=== PATIENT | female | born 1940 | race Hispanic/Latino ===

== ENCOUNTER 2017-08-23 11:00 | Emergency (ER) | payer OTHER ==
[~2017-08-23 11:00] MED LIST: AEC81 PO; FURO20TA6 PO; GLIP-162 PO; LOVA40TA2 PO; METF-526 PO; METO-408 PO; PANT40TA25 PO; TRAM50TA4 PO
[2017-08-23 11:41] LABS: BASOPHILS % (AUTO) 0.5 % (0.0-5.0); EOSINOPHILS % (AUTO) 1.1 % (0.0-8.0); LYMPHOCYTES % (AUTO) 20.2 % (21.0-51.0); MEAN CORPUSCULAR HEMOGLOBIN 30.8 pg (27.0-33.0); MEAN CORPUSCULAR HGB CONC 33.9 g/dL (32.0-36.0); MEAN CORPUSCULAR VOLUME 90.6 fL (79-99); MONOCYTES % (AUTO) 5.4 % (3.0-13.0); NEUTROPHILS % (AUTO) 72.8 % (40.0-77.0); NUCLEATED RED BLOOD CELLS 0.1 % (0.0-0.19); PLATELET COUNT (AUTO) 287 K/uL (130-400); RED BLOOD CELL COUNT(AUTO) 4.31 MIL/uL (4.00-5.50)
[2017-08-23] MEDS ORDERED: HYDRALAZINE HCL 20 MG/ML VIAL ONE (11:41)
[2017-08-23] MEDS ORDERED: MECLIZINE HCL 25 MG TABLET ONE (11:41)
[2017-08-23 11:46] LABS: CREATININE 0.9 mg/dL (0.5-1.5); POTASSIUM 4.4 mmol/L (3.5-5.1)
[2017-08-23 11:48] LABS: APPEARANCE,URINE Clear (CLEAR); BILIRUBIN,URINE Negative (NEGATIVE); COLOR,URINE Yellow (YELLOW); GLUCOSE, URINE (UA) Negative (NEGATIVE); KETONES,URINE Negative (NEGATIVE); LEUKOCYTE ESTERASE ,URINE Trace (NEGATIVE); NITRATE,URINE Negative (NEGATIVE); OCCULT BLOOD,URINE Negative (NEGATIVE); PH,URINE 6.5 (5.0-8.0); PROTEIN,URINE Negative (NEGATIVE); UROBILINOGEN,URINE 0.2 mg/dL (0.2-1.0)
[2017-08-23 11:52] LABS: ALBUMIN 3.9 g/dL (3.5-5.0); BILIRUBIN,TOTAL 0.4 mg/dL (0.2-1.0); TOTAL PROTEIN, SERUM 7.6 g/dL (6.0-8.3)
[2017-08-23 11:57] LABS: BACTERIA,URINE Rare /HPF (None Seen); RBC,URINE 0-1 /HPF (0-1); SQUAMOUS EPITHELIAL CELL,UR Rare /HPF (0-2); WBC,URINE 0-1 /HPF (0-1)
== END 2017-08-23 14:20 | disposition home or self-care (01) ==
LOC: EDH 11:00
DX: H81.399 Other peripheral vertigo, unspecified ear (principal); I10 Essential (primary) hypertension; I25.10 Atherosclerotic heart disease of native coronary artery without angina pectoris; E78.00 Pure hypercholesterolemia, unspecified; E11.9 Type 2 diabetes mellitus without complications; Z95.1 Presence of aortocoronary bypass graft; Z90.710 Acquired absence of both cervix and uterus; Z90.49 Acquired absence of other specified parts of digestive tract; Z98.890 Other specified postprocedural states
CPT/HCPCS: 36415; 70450; 80053; 81001; 82550; 84484; 85025; 93005; 96374; 99285; J0360

== ENCOUNTER 2017-08-27 23:28 | Emergency (ER) | payer OTHER ==
[2017-08-27] MEDS ORDERED: CLONIDINE HCL 0.1 MG TABLET ONE (23:58)
[2017-08-28 00:25] LABS: APPEARANCE,URINE Error (CLEAR); BILIRUBIN,URINE Negative (NEGATIVE); COLOR,URINE Yellow (YELLOW); GLUCOSE, URINE (UA) 250 mg/dL (NEGATIVE); KETONES,URINE Negative (NEGATIVE); LEUKOCYTE ESTERASE ,URINE Moderate (NEGATIVE); NITRATE,URINE Negative (NEGATIVE); OCCULT BLOOD,URINE Negative (NEGATIVE); PH,URINE 7.5 (5.0-8.0); PROTEIN,URINE POS 2+ (NEGATIVE); UROBILINOGEN,URINE 0.2 mg/dL (0.2-1.0)
[2017-08-28 00:37] LABS: BASOPHILS % (AUTO) 0.3 % (0.0-5.0); EOSINOPHILS % (AUTO) 0.7 % (0.0-8.0); HEMATOCRIT 37.9 % (36-48); LYMPHOCYTES % (AUTO) 5.4 % (21.0-51.0); MEAN CORPUSCULAR HEMOGLOBIN 30.2 pg (27.0-33.0); MEAN CORPUSCULAR HGB CONC 33.5 g/dL (32.0-36.0); MONOCYTES % (AUTO) 1.9 % (3.0-13.0); NEUTROPHILS % (AUTO) 91.7 % (40.0-77.0); PLATELET COUNT (AUTO) 264 K/uL (130-400); RED BLOOD CELL COUNT(AUTO) 4.21 MIL/uL (4.00-5.50); RED CELL DISTRIBUTION WIDTH 12.7 % (11.0-15.5); WHITE BLOOD COUNT (AUTO) 14.3 K/uL (4.8-10.8)
[2017-08-28 00:37] LABS: BACTERIA,URINE Few /HPF (None Seen); MUCUS,URINE Moderate LPF (None Seen); RBC,URINE 0-1 /HPF (0-1); SQUAMOUS EPITHELIAL CELL,UR Few /HPF (0-2)
[2017-08-28 00:50] LABS: CREATININE 0.9 mg/dL (0.5-1.5)
[2017-08-28] MEDS ORDERED: CEFTRIAXONE SODIUM 1 GM ONE (00:50)
[2017-08-28 00:55] LABS: ALBUMIN 3.9 g/dL (3.5-5.0); BILIRUBIN,TOTAL 0.4 mg/dL (0.2-1.0); TOTAL PROTEIN, SERUM 7.8 g/dL (6.0-8.3)
== END 2017-08-28 01:33 | disposition home or self-care (01) ==
LOC: EDH 23:28
DX: N39.0 Urinary tract infection, site not specified (principal); R50.9 Fever, unspecified; I25.10 Atherosclerotic heart disease of native coronary artery without angina pectoris; E11.9 Type 2 diabetes mellitus without complications; E78.00 Pure hypercholesterolemia, unspecified; Z95.1 Presence of aortocoronary bypass graft; Z90.710 Acquired absence of both cervix and uterus; Z90.49 Acquired absence of other specified parts of digestive tract
CPT/HCPCS: 36415; 80053; 81001; 82550; 84484; 85025; 93005; 96374; 99285; J0696

== ENCOUNTER 2018-01-08 14:19 | Observation (INO) | payer OTHER ==
[~2018-01-08] VITALS: Ht 162.6 cm; Wt 53.8 kg
[~2018-01-08 14:19] MED LIST changes: +ATOR40TA71 PO; -FURO20TA6 PO; -GLIP-162 PO; +GLIP10TA9 PO; +LISI10TA7 PO; -LOVA40TA2 PO; -PANT40TA25 PO; -TRAM50TA4 PO
[2018-01-08] MEDS ORDERED: SODIUM CHLORIDE 0.9% 500ML 500 ML IV ONE (14:46)
[2018-01-08] MEDS ORDERED: ONDANSETRON HCL 4 MG/2 ML VIAL ONE ×2 (14:46→19:26)
[2018-01-08 14:48] LABS: BASOPHILS % (AUTO) 0.2 % (0.0-5.0); EOSINOPHILS % (AUTO) 0.5 % (0.0-8.0); HEMATOCRIT 40.3 % (36-48); LYMPHOCYTES % (AUTO) 5.5 % (21.0-51.0); MEAN CORPUSCULAR HEMOGLOBIN 30.3 pg (27.0-33.0); MEAN CORPUSCULAR HGB CONC 32.8 g/dL (32.0-36.0); MEAN CORPUSCULAR VOLUME 92.3 fL (79-99); MONOCYTES % (AUTO) 3.8 % (3.0-13.0); PLATELET COUNT (AUTO) 303 K/uL (130-400); RED BLOOD CELL COUNT(AUTO) 4.36 MIL/uL (4.00-5.50); RED CELL DISTRIBUTION WIDTH 13.7 % (11.0-15.5); WHITE BLOOD COUNT (AUTO) 18.4 K/uL (4.8-10.8)
[2018-01-08 14:55] LABS: CREATININE 0.9 mg/dL (0.5-1.5); POTASSIUM 4.3 mmol/L (3.5-5.1)
[2018-01-08 14:59] LABS: ALBUMIN 3.7 g/dL (3.5-5.0); BILIRUBIN,TOTAL 0.6 mg/dL (0.2-1.0); TOTAL PROTEIN, SERUM 7.6 g/dL (6.0-8.3)
[2018-01-08] MEDS ORDERED: FAMOTIDINE/PF 20 MG/2 ML VIAL IV ONE (15:00)
[2018-01-08] MEDS: SODIUM CHLORIDE 0.9% 1000ML 1,000 ML IV SCH (16:12)
[2018-01-08] MEDS ORDERED: LEVOFLOXACIN 500 MG/D5W 100 ML 100 ML IV SCH (16:15)
[2018-01-08] MEDS ORDERED: ACETAMINOPHEN 325 MG TAB PO PRN (16:15)
[2018-01-08] MEDS ORDERED: ONDANSETRON HCL MDV 20ML 2 MG/ML VIAL IVP PRN (16:15)
[2018-01-08] MEDS ORDERED: HYDRALAZINE HCL 20 MG/ML VIAL IV PRN (16:15)
[2018-01-08] MEDS ORDERED: MORPHINE SULFATE 2 MG/ML 1ML SYG IV PRN (16:15)
[2018-01-08] MEDS: METRONIDAZOLE 500MG/100ML BAG 100 ML IV SCH (16:15)
[2018-01-08] MEDS: INSULIN HUMULIN R 100 UNIT/ML 3ML SQ SCH ×2 (16:30→21:00)
[2018-01-08] MEDS ORDERED: SODIUM CHLORIDE 0.9% 1000ML 1,000 ML IV ONE (17:14)
[2018-01-08] MEDS ORDERED: LEVOFLOXACIN 500 MG/D5W 100 ML 100 ML ONE (17:14)
[2018-01-08] MEDS ORDERED: METRONIDAZOLE 500MG/100ML BAG 100 ML ONE (17:14)
[2018-01-08] MEDS ORDERED: ACETAMINOPHEN 325 MG TAB ONE (18:24)
[2018-01-08] MEDS: METOPROLOL TARTRATE 50 MG TAB PO SCH (21:00)
[2018-01-09] MEDS: METRONIDAZOLE 500MG/100ML BAG 100 ML IV SCH ×2 (00:15→08:53)
[2018-01-09] MEDS ORDERED: METRONIDAZOLE 500MG/100ML BAG 100 ML ONE (02:04)
[2018-01-09 03:20] VITALS: BP 130/61
[2018-01-09 06:31] LABS: HEMATOCRIT 34.6 % (36-48); MEAN CORPUSCULAR HEMOGLOBIN 31.2 pg (27.0-33.0); MEAN CORPUSCULAR HGB CONC 33.9 g/dL (32.0-36.0); PLATELET COUNT (AUTO) 255 K/uL (130-400); RED BLOOD CELL COUNT(AUTO) 3.76 MIL/uL (4.00-5.50); RED CELL DISTRIBUTION WIDTH 13.7 % (11.0-15.5); WHITE BLOOD COUNT (AUTO) 7.4 K/uL (4.8-10.8)
[2018-01-09 06:36] LABS: CREATININE 0.8 mg/dL (0.5-1.5); POTASSIUM 3.5 mmol/L (3.5-5.1)
[2018-01-09] MEDS: SODIUM CHLORIDE 0.9% 1000ML 1,000 ML IV SCH (06:52)
[2018-01-09] MEDS: INSULIN HUMULIN R 100 UNIT/ML 3ML SQ SCH ×2 (06:52→11:30)
[2018-01-09 07:10] LABS: APPEARANCE,URINE Clear (CLEAR); BILIRUBIN,URINE Negative (NEGATIVE); COLOR,URINE Yellow (YELLOW); GLUCOSE, URINE (UA) Negative (NEGATIVE); KETONES,URINE Negative (NEGATIVE); LEUKOCYTE ESTERASE ,URINE Negative (NEGATIVE); NITRATE,URINE Negative (NEGATIVE); OCCULT BLOOD,URINE Negative (NEGATIVE); PH,URINE 5.5 (5.0-8.0); PROTEIN,URINE Negative (NEGATIVE)
[2018-01-09 07:59] VITALS: BP 140/61
[2018-01-09] MEDS: METOPROLOL TARTRATE 50 MG TAB PO SCH (08:54)
[2018-01-09] MEDS ORDERED: ASPIRIN 81 MG EC TAB PO SCH (09:00)
[2018-01-09] MEDS ORDERED: ATORVASTATIN CALCIUM 40 MG TABLET PO SCH (09:00)
[2018-01-09] MEDS ORDERED: ENOXAPARIN SODIUM 30 MG/0.3 ML SQ SCH (09:00)
[2018-01-09] MEDS ORDERED: FAMOTIDINE/PF 20 MG/2 ML VIAL IV SCH (09:00)
[2018-01-09 11:39] VITALS: BP 141/62
[2018-01-09] MEDS ORDERED: METR500T4 PO (12:16)
== END 2018-01-09 15:17 | disposition home or self-care (01) ==
LOC: EDH 14:19 → EDHIP 15:40 → 3CH 01-09 02:51
PROVIDERS: ADMIT Hospitalist; ATTEND Hospitalist
DX: K52.9 Noninfective gastroenteritis and colitis, unspecified (principal); E86.0 Dehydration; E11.9 Type 2 diabetes mellitus without complications; I25.10 Atherosclerotic heart disease of native coronary artery without angina pectoris; E78.5 Hyperlipidemia, unspecified; I10 Essential (primary) hypertension; Z79.84 Long term (current) use of oral hypoglycemic drugs; Z83.3 Family history of diabetes mellitus; Z90.710 Acquired absence of both cervix and uterus; Z95.1 Presence of aortocoronary bypass graft; Z90.49 Acquired absence of other specified parts of digestive tract
CPT/HCPCS: 36415 ×2; 80048; 80053; 81003; 82948 ×3; 83690; 85025; 85027; 93005; 96361; 96372; 96374; 99285; G0378 ×24; J1650; J1956; J2405 ×2; J3490 ×5; J7030; J7040

== ENCOUNTER 2018-01-10 22:27 | Emergency (ER) | payer OTHER ==
[~2018-01-10 22:27] MED LIST changes: +METR500T4 PO
[2018-01-10] MEDS ORDERED: HYDRALAZINE HCL 20 MG/ML VIAL ONE (23:01)
[2018-01-10 23:20] LABS: BASOPHILS % (AUTO) 0.5 % (0.0-5.0); HEMATOCRIT 36.3 % (36-48); LYMPHOCYTES % (AUTO) 29.4 % (21.0-51.0); MEAN CORPUSCULAR HEMOGLOBIN 31.7 pg (27.0-33.0); MEAN CORPUSCULAR HGB CONC 34.4 g/dL (32.0-36.0); MEAN CORPUSCULAR VOLUME 92.2 fL (79-99); NEUTROPHILS % (AUTO) 53.1 % (40.0-77.0); NUCLEATED RED BLOOD CELLS 0.2 % (0.0-0.19); PLATELET COUNT (AUTO) 284 K/uL (130-400); RED BLOOD CELL COUNT(AUTO) 3.94 MIL/uL (4.00-5.50); RED CELL DISTRIBUTION WIDTH 13.9 % (11.0-15.5); WHITE BLOOD COUNT (AUTO) 7.8 K/uL (4.8-10.8)
[2018-01-10 23:32] LABS: INR 0.95 (0.85-1.15); PARTIAL THROMBOPLASTIN TIME 25.9 SEC (26.3-35.5)
[2018-01-10 23:33] LABS: CREATININE 0.8 mg/dL (0.5-1.5); POTASSIUM 4.2 mmol/L (3.5-5.1)
[2018-01-10 23:44] LABS: ALBUMIN 3.4 g/dL (3.5-5.0); BILIRUBIN,TOTAL 0.3 mg/dL (0.2-1.0); TOTAL PROTEIN, SERUM 6.6 g/dL (6.0-8.3)
[2018-01-10 23:48] LABS: B-TYPE NATRIURETIC PEPTIDE 156 pg/mL (0-100)
== END 2018-01-11 00:24 | disposition home or self-care (01) ==
LOC: EDH 22:27
DX: B34.9 Viral infection, unspecified (principal); K52.9 Noninfective gastroenteritis and colitis, unspecified; J06.9 Acute upper respiratory infection, unspecified; I10 Essential (primary) hypertension; I25.10 Atherosclerotic heart disease of native coronary artery without angina pectoris; E11.9 Type 2 diabetes mellitus without complications; E78.00 Pure hypercholesterolemia, unspecified
CPT/HCPCS: 36415; 71045; 80053; 82550; 83874; 83880; 84484; 85025; 85610; 85730; 93005; 94761; 96365; 99285; J0360

== ENCOUNTER 2018-05-16 07:56 | Inpatient (IN) | payer OTHER | END 2018-05-18 17:50 | disposition home or self-care (01) | LOC: EDH 07:56 → 2DH 05-17 08:06 → EDHIP 09:37 → 2DH 18:32 | DX: R00.1 Bradycardia, unspecified (principal); I25.10 Atherosclerotic heart disease of native coronary artery without angina pectoris; I44.1 Atrioventricular block, second degree; I10 Essential (primary) hypertension ==

== ENCOUNTER 2018-05-28 18:19 | Observation (INO) | payer OTHER ==
[~2018-05-28 18:19] MED LIST changes: +METR-172 PO; -METR500T4 PO; +TYL3 PO
[2018-05-28] MEDS ORDERED: NITROGLYCERIN 1GM/1 INCH PACKET TD ONE (18:50)
[2018-05-28] MEDS ORDERED: ASPIRIN 325 MG TABLET ONE (18:50)
[2018-05-28 18:59] LABS: BASOPHILS % (AUTO) 0.6 % (0.0-5.0); EOSINOPHILS % (AUTO) 2.8 % (0.0-8.0); LYMPHOCYTES % (AUTO) 18.8 % (21.0-51.0); MEAN CORPUSCULAR HEMOGLOBIN 30.9 pg (27.0-33.0); MEAN CORPUSCULAR HGB CONC 33.5 g/dL (32.0-36.0); NEUTROPHILS % (AUTO) 68.8 % (40.0-77.0); PLATELET COUNT (AUTO) 409 K/uL (130-400); RED BLOOD CELL COUNT(AUTO) 3.81 MIL/uL (4.00-5.50); RED CELL DISTRIBUTION WIDTH 13.7 % (11.0-15.5); WHITE BLOOD COUNT (AUTO) 8.6 K/uL (4.8-10.8)
[2018-05-28 19:14] LABS: CREATININE 1.1 mg/dL (0.5-1.5); POTASSIUM 4.1 mmol/L (3.5-5.1)
[2018-05-28] MEDS ORDERED: MORPHINE SULFATE 2 MG/ML 1ML SYG IV PRN (21:30)
[2018-05-28] MEDS ORDERED: ONDANSETRON HCL 4 MG/2 ML VIAL IV PRN (21:30)
[2018-05-28] MEDS ORDERED: ACETAMINOPHEN 325 MG TAB PO PRN (21:30)
[2018-05-28] MEDS ORDERED: NITROGLYCERIN 1GM/1 INCH PACKET TD SCH (21:30)
[2018-05-28] MEDS ORDERED: HYDRALAZINE HCL 20 MG/ML VIAL IV PRN (21:30)
[2018-05-28] MEDS ORDERED: ACETAMINOPHEN 325 MG TAB ONE (23:30)
[2018-05-28] MEDS ORDERED: HYDRALAZINE HCL 20 MG/ML VIAL ONE (23:44)
[2018-05-29 02:01] LABS: APPEARANCE,URINE Clear (CLEAR); BILIRUBIN,URINE Negative (NEGATIVE); COLOR,URINE Yellow (YELLOW); GLUCOSE, URINE (UA) Negative (NEGATIVE); KETONES,URINE Negative (NEGATIVE); LEUKOCYTE ESTERASE ,URINE Small (NEGATIVE); NITRATE,URINE Negative (NEGATIVE); OCCULT BLOOD,URINE Negative (NEGATIVE); PH,URINE 7.5 (5.0-8.0); PROTEIN,URINE POS 2+ (NEGATIVE)
[2018-05-29 02:16] LABS: BACTERIA,URINE Rare /HPF (None Seen); RBC,URINE 0-1 /HPF (0-1)
[2018-05-29] MEDS ORDERED: NITROGLYCERIN 1GM/1 INCH PACKET TD ONE (03:44)
[2018-05-29] MEDS ORDERED: ACETAMINOPHEN 325 MG TAB ONE (03:44)
[2018-05-29] MEDS ORDERED: ASPIRIN 81MG TAB.CHEW ONE (08:24)
[2018-05-29] MEDS ORDERED: METRONIDAZOLE 500 MG TABLET ONE (08:24)
[2018-05-29] MEDS ORDERED: ATORVASTATIN CALCIUM 20 MG TABLET ONE (08:25)
[2018-05-29] MEDS ORDERED: METOPROLOL TARTRATE 50 MG TAB ONE (08:25)
[2018-05-29] MEDS ORDERED: ENOXAPARIN SODIUM 30 MG/0.3 ML SQ ONE (08:26)
[2018-05-29] MEDS ORDERED: FAMOTIDINE/PF 20 MG/2 ML VIAL IV ONE (08:26)
[2018-05-29 08:57] LABS: HEMATOCRIT 34.4 % (36-48); MEAN CORPUSCULAR HEMOGLOBIN 30.2 pg (27.0-33.0); MEAN CORPUSCULAR HGB CONC 32.9 g/dL (32.0-36.0); MEAN CORPUSCULAR VOLUME 91.8 fL (79-99); PLATELET COUNT (AUTO) 376 K/uL (130-400); RED BLOOD CELL COUNT(AUTO) 3.75 MIL/uL (4.00-5.50); RED CELL DISTRIBUTION WIDTH 13.6 % (11.0-15.5); WHITE BLOOD COUNT (AUTO) 12.2 K/uL (4.8-10.8)
[2018-05-29] MEDS ORDERED: LISINOPRIL 10 MG TABLET PO SCH (09:00)
[2018-05-29] MEDS ORDERED: ENOXAPARIN SODIUM 30 MG/0.3 ML SQ SCH (09:00)
[2018-05-29] MEDS ORDERED: METRONIDAZOLE 500 MG TABLET PO SCH (09:00)
[2018-05-29] MEDS ORDERED: Metoprolol Succinate 50 MG PO SCH (09:00)
[2018-05-29] MEDS ORDERED: FAMOTIDINE/PF 20 MG/2 ML VIAL IV SCH (09:00)
[2018-05-29] MEDS ORDERED: ASPIRIN 81 MG EC TAB PO SCH (09:00)
[2018-05-29] MEDS ORDERED: ATORVASTATIN CALCIUM 40 MG TABLET PO SCH (09:00)
[2018-05-29 09:01] LABS: CREATININE 0.8 mg/dL (0.5-1.5); POTASSIUM 4.2 mmol/L (3.5-5.1)
[2018-05-29 09:25] LABS: B-TYPE NATRIURETIC PEPTIDE 153 pg/mL (0-100)
== END 2018-05-29 10:13 | disposition home or self-care (01) ==
LOC: EDH 18:19 → EDHIP 19:55
PROVIDERS: ADMIT Internal Medicine; ATTEND Internal Medicine
DX: I10 Essential (primary) hypertension (principal); I25.10 Atherosclerotic heart disease of native coronary artery without angina pectoris; E78.5 Hyperlipidemia, unspecified; E11.9 Type 2 diabetes mellitus without complications; Z82.49 Family history of ischemic heart disease and other diseases of the circulatory system; Z83.3 Family history of diabetes mellitus; Z95.0 Presence of cardiac pacemaker; Z90.710 Acquired absence of both cervix and uterus; Z95.1 Presence of aortocoronary bypass graft
CPT/HCPCS: 36415 ×2; 71046; 80048 ×2; 81001; 83880; 84484 ×3; 85025; 85027; 93005; 99284; G0378 ×14; J0360; J1650; J3490

== ENCOUNTER → 2019-07-03 | Outpatient (CLI) | payer OTHER | END | disposition home or self-care (01) | LOC: SHCH 09:26 | PROVIDERS: ATTEND Internal Medicine Cardiovascular Disease | DX: I07.1 Rheumatic tricuspid insufficiency (principal); R01.1 Cardiac murmur, unspecified | CPT/HCPCS: 93306; 93356 ==

== ENCOUNTER → 2019-07-09 | Outpatient (CLI) | payer OTHER | END | disposition home or self-care (01) | LOC: SHCH 08:09 | PROVIDERS: ATTEND Internal Medicine Cardiovascular Disease | DX: R09.89 Other specified symptoms and signs involving the circulatory and respiratory systems (principal) | CPT/HCPCS: 93880 ==

== ENCOUNTER → 2021-02-07 | Outpatient (CLI) | payer OTHER ==
[~2021-02-07] MED LIST changes: +LISI10TA24 PO; -LISI10TA7 PO
== END | disposition home or self-care (01) ==
LOC: SHCH 08:47
PROVIDERS: ATTEND Internal Medicine Cardiovascular Disease
DX: I34.0 Nonrheumatic mitral (valve) insufficiency (principal); R55 Syncope and collapse; I25.10 Atherosclerotic heart disease of native coronary artery without angina pectoris; I10 Essential (primary) hypertension
CPT/HCPCS: 93306; 93356

== ENCOUNTER → 2022-01-09 | Outpatient (CLI) | payer OTHER ==
[~2022-01-09] VITALS: Ht 162.6 cm; Wt 48.5 kg
[~2022-01-09] MED LIST changes: +REGADENOSON 0.4 MG/5 ML PF SYG IVP SCH
== END | disposition home or self-care (01) ==
LOC: OIH 08:59
PROVIDERS: ATTEND Internal Medicine Cardiovascular Disease
DX: R07.9 Chest pain, unspecified (principal); R06.00 Dyspnea, unspecified; I10 Essential (primary) hypertension
CPT/HCPCS: 78452; 96374; 93017; J2785; A9500 ×2

== ENCOUNTER → 2022-12-11 | Outpatient (CLI) | payer OTHER ==
[~2022-12-11] MED LIST changes: -REGADENOSON 0.4 MG/5 ML PF SYG IVP SCH
== END | disposition home or self-care (01) ==
LOC: SHCH 08:31
PROVIDERS: ATTEND Internal Medicine Cardiovascular Disease
DX: I25.10 Atherosclerotic heart disease of native coronary artery without angina pectoris (principal); Z95.5 Presence of coronary angioplasty implant and graft
CPT/HCPCS: 93306

== ENCOUNTER 2023-07-15 21:28 | Emergency (ER) | payer OTHER ==
[~2023-07-15] VITALS: Ht 149.9 cm; Wt 44.9 kg
[2023-07-15 21:55] LABS: BASOPHILS # (AUTO) 0.02 K/uL (0.00-0.20); BASOPHILS % (AUTO) 0.2 % (0.0-5.0); EOSINOPHILS # (AUTO) 0.13 K/uL (0.00-0.70); EOSINOPHILS % (AUTO) 1.5 % (0.0-8.0); HEMATOCRIT 38.9 % (36-48); IMMATURE GRANULOCYTE ABSOLUTE 0.01 K/uL (0-1); LYMPHOCYTES # (AUTO) 2.4 K/uL (1.0-4.8); LYMPHOCYTES % (AUTO) 27.9 % (21.0-51.0); MEAN CORPUSCULAR HEMOGLOBIN 30.7 pg (27.0-33.0); MEAN CORPUSCULAR HGB CONC 33.4 g/dL (32.0-36.0); MEAN CORPUSCULAR VOLUME 91.7 fL (79-99); MONOCYTES # (AUTO) 1.3 K/uL (0.1-1.0); MONOCYTES % (AUTO) 15.5 % (3.0-13.0); NEUTROPHILS # (AUTO) 4.6 K/uL (1.8-7.7); NEUTROPHILS % (AUTO) 54.8 % (40.0-77.0); PLATELET COUNT (AUTO) 237 K/uL (130-400); RED BLOOD CELL COUNT(AUTO) 4.24 MIL/uL (4.00-5.50); RED CELL DISTRIBUTION WIDTH 13.1 % (11.0-15.5); WHITE BLOOD COUNT (AUTO) 8.5 K/uL (4.8-10.8)
[2023-07-15 21:56] LABS: APPEARANCE,URINE CLEAR (CLEAR); BILIRUBIN,URINE NEGATIVE (NEGATIVE); COLOR,URINE COLORLESS (YELLOW); GLUCOSE, URINE (UA) NEGATIVE (NEGATIVE); KETONES,URINE NEGATIVE (NEGATIVE); LEUKOCYTE ESTERASE ,URINE NEGATIVE Leu/uL (NEGATIVE); NITRATE,URINE NEGATIVE (NEGATIVE); OCCULT BLOOD,URINE NEGATIVE (NEGATIVE); PH,URINE 5.5 (5.0-8.0); PROTEIN,URINE NEGATIVE (NEGATIVE); UROBILINOGEN,URINE 0.2 mg/dL (0.2-1.0)
[2023-07-15 21:58] LABS: ADD UA MICROSCOPIC YES
[2023-07-15 22:07] LABS: CREATININE 0.8 mg/dL (0.5-1.0); POTASSIUM 4.2 mmol/L (3.5-5.1)
[2023-07-15 22:12] LABS: ALBUMIN 2.9 g/dL (3.5-5.0); BILIRUBIN,TOTAL 0.4 mg/dL (0.2-1.0); TOTAL PROTEIN, SERUM 6.5 g/dL (6.0-8.3)
[2023-07-15 22:20] LABS: INFLUENZA TYPE A Negative For Type A (NEGATIVE); INFLUENZA TYPE B Negative For Type B (NEGATIVE)
[2023-07-15 22:23] LABS: RAPID GROUP A STREP positive (NEGATIVE); SARS-CoV-2, RNA, NAAT POSITIVE SARS CoV-2 (NEGATIVE)
[2023-07-15] MEDS: ALBUTEROL 0.083% 2.5 MG/3 ML INH IH ONE (23:24)
[2023-07-15 23:25] VITALS: PULSE 81; RESP 12
[2023-07-15] MEDS: 0.9%NACL 1000ML 1,000 ML IV ONE (23:35)
[2023-07-15] MEDS: CEFTRIAXONE 2GM VIAL IVPB ONE (23:35)
[2023-07-15] MEDS: DEXAMETHASONE SOD PHOSPHATE 4 MG/ML 1ML VIAL IV ONE (23:36)
[2023-07-15] MEDS: METOCLOPRAMIDE 10 MG/2 ML VIAL IVP ONE (23:36)
[2023-07-15] MEDS: KETOROLAC 30MG VIAL (30MG/ML) IVP ONE (23:36)
[2023-07-15] MEDS: FAMOTIDINE 20MG VIAL IV ONE (23:37)
[2023-07-15] MEDS ORDERED: AUD IH (23:51)
[2023-07-15] MEDS ORDERED: PENI500T2 PO (23:51)
[2023-07-16 01:07] VITALS: BP 167/84; PULSE 77; RESP 16; O2SAT 98
== END 2023-07-16 01:24 | disposition home or self-care (01) ==
LOC: EDH 21:28
DX: U07.1 COVID-19 (principal); J02.0 Streptococcal pharyngitis; I10 Essential (primary) hypertension; E11.9 Type 2 diabetes mellitus without complications; E78.00 Pure hypercholesterolemia, unspecified; Z79.82 Long term (current) use of aspirin; Z79.84 Long term (current) use of oral hypoglycemic drugs; Z79.899 Other long term (current) drug therapy; Z98.890 Other specified postprocedural states
CPT/HCPCS: 99284; 96365; 96375; 87635; 96366; 82550; 84484; 80053; 83690; 85025; 87880; 87804 ×2; 83605; 81001; 36415; 93005; 94640; J1100; J3490; J7030; J0696; J1885; J2765

== ENCOUNTER → 2023-10-02 | Outpatient (CLI) | payer OTHER ==
[~2023-10-02] MED LIST changes: +ALBU90AE3 IH; +AUD IH; +PENI500T2 PO
[2023-10-02 10:20] LABS: BASOPHILS # (AUTO) 0.03 K/uL (0.00-0.20); BASOPHILS % (AUTO) 0.3 % (0.0-5.0); EOSINOPHILS % (AUTO) 2.2 % (0.0-8.0); HEMATOCRIT 36.7 % (36-48); IMMATURE GRANULOCYTE ABSOLUTE 0.03 K/uL (0-1); LYMPHOCYTES # (AUTO) 2.4 K/uL (1.0-4.8); LYMPHOCYTES % (AUTO) 25.9 % (21.0-51.0); MEAN CORPUSCULAR HEMOGLOBIN 31.2 pg (27.0-33.0); MEAN CORPUSCULAR HGB CONC 32.4 g/dL (32.0-36.0); MEAN CORPUSCULAR VOLUME 96.1 fL (79-99); MONOCYTES # (AUTO) 0.7 K/uL (0.1-1.0); MONOCYTES % (AUTO) 7.3 % (3.0-13.0); NEUTROPHILS # (AUTO) 5.9 K/uL (1.8-7.7); PLATELET COUNT (AUTO) 268 K/uL (130-400); RED BLOOD CELL COUNT(AUTO) 3.82 MIL/uL (4.00-5.50); RED CELL DISTRIBUTION WIDTH 12.5 % (11.0-15.5); WHITE BLOOD COUNT (AUTO) 9.2 K/uL (4.8-10.8)
[2023-10-02 10:32] LABS: ALBUMIN 3.4 g/dL (3.5-5.0); BILIRUBIN,TOTAL 0.3 mg/dL (0.2-1.0); CREATININE 0.7 mg/dL (0.5-1.0); POTASSIUM 4.7 mmol/L (3.5-5.1); TOTAL PROTEIN, SERUM 6.7 g/dL (6.0-8.3)
== END | disposition home or self-care (01) ==
LOC: LAB 09:15
PROVIDERS: ATTEND Internal Medicine Gastroenterology
DX: I70.0 Atherosclerosis of aorta (principal); R63.4 Abnormal weight loss; M47.815 Spondylosis without myelopathy or radiculopathy, thoracolumbar region; Z98.890 Other specified postprocedural states; Z95.0 Presence of cardiac pacemaker
CPT/HCPCS: 36415; 71046; 80053; 85025

== ENCOUNTER 2023-10-12 19:22 | Observation (INO) | payer OTHER ==
[~2023-10-12] VITALS: Ht 157.5 cm; Wt 43.5 kg
[2023-10-12 20:32] LABS: BASOPHILS # (AUTO) 0.03 K/uL (0.00-0.20); BASOPHILS % (AUTO) 0.3 % (0.0-5.0); EOSINOPHILS # (AUTO) 0.13 K/uL (0.00-0.70); EOSINOPHILS % (AUTO) 1.4 % (0.0-8.0); HEMATOCRIT 34.3 % (36-48); IMMATURE GRANULOCYTE ABSOLUTE 0.02 K/uL (0-1); LYMPHOCYTES # (AUTO) 1.4 K/uL (1.0-4.8); LYMPHOCYTES % (AUTO) 15.4 % (21.0-51.0); MEAN CORPUSCULAR HEMOGLOBIN 31.5 pg (27.0-33.0); MEAN CORPUSCULAR HGB CONC 33.5 g/dL (32.0-36.0); MONOCYTES # (AUTO) 0.8 K/uL (0.1-1.0); NEUTROPHILS # (AUTO) 6.7 K/uL (1.8-7.7); NEUTROPHILS % (AUTO) 73.7 % (40.0-77.0); PLATELET COUNT (AUTO) 220 K/uL (130-400); RED BLOOD CELL COUNT(AUTO) 3.65 MIL/uL (4.00-5.50); RED CELL DISTRIBUTION WIDTH 12.1 % (11.0-15.5); WHITE BLOOD COUNT (AUTO) 9.1 K/uL (4.8-10.8)
[2023-10-12 20:39] LABS: APPEARANCE,URINE CLEAR (CLEAR); BILIRUBIN,URINE NEGATIVE (NEGATIVE); COLOR,URINE LIGHT-YELLOW (YELLOW); GLUCOSE, URINE (UA) NEGATIVE (NEGATIVE); KETONES,URINE NEGATIVE (NEGATIVE); LEUKOCYTE ESTERASE ,URINE 250 Leu/uL (NEGATIVE); NITRATE,URINE NEGATIVE (NEGATIVE); OCCULT BLOOD,URINE NEGATIVE (NEGATIVE); PROTEIN,URINE 50 mg/dL (NEGATIVE); UROBILINOGEN,URINE 0.2 mg/dL (0.2-1.0)
[2023-10-12 20:42] LABS: ADD UA MICROSCOPIC YES
[2023-10-12 20:47] LABS: MUCUS,URINE RARE LPF (None Seen); SQUAMOUS EPITHELIAL CELL,UR RARE /HPF (0-2)
[2023-10-12 20:56] LABS: POTASSIUM 4.6 mmol/L (3.5-5.1)
[2023-10-12 21:01] LABS: ALBUMIN 3.3 g/dL (3.5-5.0); BILIRUBIN,TOTAL 0.2 mg/dL (0.2-1.0); TOTAL PROTEIN, SERUM 6.1 g/dL (6.0-8.3)
[2023-10-12] MEDS: MAG/ALUM/SIMETH 30 ML UDCUP PO ONE (21:01)
[2023-10-12] MEDS: LIDOCAINE HCL 2% VISCOUS 15 ML UDCUP PO ONE (21:01)
[2023-10-12] MEDS ORDERED: IOHEXOL-350 75 ML VIAL IV ONE (21:43)
[2023-10-12] MEDS: HYDROMORPHONE 0.5 MG SYG (0.5MG/0.5ML) IVP ONE (23:01)
[2023-10-13] VITALS (7 sets, daily range): BP systolic 114–211; BP diastolic 51–74; PULSE 61–67; RESP 16–21; O2SAT 97–98
[2023-10-13] MEDS: HYDRALAZINE 20MG/ML VIAL IV ONE (01:10)
[2023-10-13] MEDS: HYDRALAZINE HCL 10 MG TABLET PO STA (01:22)
[2023-10-13] MEDS ORDERED: GLUCAGON 1MG KIT 1 MG ML IM PRN (02:30)
[2023-10-13] MEDS ORDERED: POTASSIUM CHLORIDE 10% ELIXIR 20 MEQ/15 ML UDCUP PO PRN (02:30)
[2023-10-13] MEDS ORDERED: ACETAMINOPHEN 325 MG TAB PO PRN (02:30)
[2023-10-13] MEDS ORDERED: POTASSIUM CHLORIDE 10MEQ/100ML 100 ML IV PRN (02:30)
[2023-10-13] MEDS ORDERED: DEXTROSE 50%-WATER 50 ML DISP.SYRIN IV PRN (02:30)
[2023-10-13] MEDS ORDERED: HYDRALAZINE 20MG/ML VIAL IV PRN (02:30)
[2023-10-13] MEDS ORDERED: KCL 20 MEQ ERTAB PO PRN (02:30)
[2023-10-13] MEDS ORDERED: MAGNESIUM 2GM PREMIX 50ML 50 ML IV PRN (02:30)
[2023-10-13] MEDS ORDERED: ALBUTEROL 0.083% 2.5 MG/3 ML INH IH PRN (02:30)
[2023-10-13] MEDS: DOCUSATE SODIUM 100 MG CAP PO SCH (02:41)
[2023-10-13] MEDS: LACTULOSE 20 GM/30 ML UDCUP PO STA (02:42)
[2023-10-13 02:43] LABS: BASOPHILS # (AUTO) 0.02 K/uL (0.00-0.20); BASOPHILS % (AUTO) 0.2 % (0.0-5.0); EOSINOPHILS # (AUTO) 0.06 K/uL (0.00-0.70); EOSINOPHILS % (AUTO) 0.5 % (0.0-8.0); HEMATOCRIT 32.3 % (36-48); IMMATURE GRANULOCYTE ABSOLUTE 0.03 K/uL (0-1); LYMPHOCYTES # (AUTO) 1.4 K/uL (1.0-4.8); LYMPHOCYTES % (AUTO) 11.2 % (21.0-51.0); MEAN CORPUSCULAR HEMOGLOBIN 31.7 pg (27.0-33.0); MEAN CORPUSCULAR VOLUME 90.7 fL (79-99); MONOCYTES # (AUTO) 0.9 K/uL (0.1-1.0); MONOCYTES % (AUTO) 7.5 % (3.0-13.0); NEUTROPHILS # (AUTO) 9.8 K/uL (1.8-7.7); NEUTROPHILS % (AUTO) 80.4 % (40.0-77.0); PLATELET COUNT (AUTO) 218 K/uL (130-400); RED BLOOD CELL COUNT(AUTO) 3.56 MIL/uL (4.00-5.50); WHITE BLOOD COUNT (AUTO) 12.2 K/uL (4.8-10.8)
[2023-10-13 02:51] LABS: CREATININE 0.7 mg/dL (0.5-1.0); HEMOGLOBIN A1C 8.1 % (4.0-6.0); POTASSIUM 4.1 mmol/L (3.5-5.1)
[2023-10-13 03:04] LABS: MAGNESIUM 1.6 mg/dL (1.80-2.40); PHOSPHORUS 2.7 mg/dL (2.5-4.9); THYROID STIMULATING HORMONE 1.5 uIU/mL (0.36-3.74)
[2023-10-13] MEDS: LABETALOL 20MG SYG IV PRN (03:47)
[2023-10-13] MEDS ORDERED: LISI40TA9 PO (04:37)
[2023-10-13] MEDS ORDERED: METO-391 PO (04:37)
[2023-10-13] MEDS ORDERED: BISACODYL 5 MG TABLET.DR PO PRN (05:00)
[2023-10-13] MEDS: ONDANSETRON 4MG INJ IVP PRN (05:11)
[2023-10-13] MEDS: 0.9%NACL 1000ML 1,000 ML IV SCH (05:11)
[2023-10-13] MEDS: CEFTRIAXONE 2GM VIAL IVPB SCH (05:11)
[2023-10-13] MEDS: ENALAPRILAT DIHYDRATE 1.25MG/ML 1ML VIAL IV SCH (05:13)
[2023-10-13] MEDS: METRONIDAZOLE 500MG/100ML BAG 100 ML IVPB SCH (05:21)
[2023-10-13] MEDS: LACTULOSE 20 GM/30 ML UDCUP PO ONE (05:50)
[2023-10-13] MEDS: INSULIN HUMULIN R 100 UNIT/ML 3ML SQ SCH (06:23)
[2023-10-13] MEDS: MAGNESIUM 2GM PREMIX 50ML 50 ML IV SCH (06:42)
[2023-10-13] MEDS: POLYETHYLENE GLYCOL 3350 17 GM POWD.PACK PO SCH (08:42)
[2023-10-13] MEDS: PANTOPRAZOLE 40 MG TAB DR PO SCH (08:42)
[2023-10-13] MEDS: BISACODYL 5 MG TABLET.DR PO SCH (08:42)
[2023-10-13] MEDS: MAGNESIUM CITRATE 296 ML SOLUTION PO ONE (10:02)
[2023-10-13] MEDS ORDERED: POLY17PO4 PO (12:49)
[2023-10-13] MEDS ORDERED: BISA-151 PO (12:49)
[2023-10-14] MEDS ORDERED: LISINOPRIL 40 MG TABLET PO SCH (09:00)
[2023-10-14] MEDS ORDERED: ATORVASTATIN 40 MG TABLET PO SCH (09:00)
[2023-10-14] MEDS ORDERED: ASPIRIN 81 MG EC TAB PO SCH (09:00)
== END 2023-10-13 16:36 | disposition home or self-care (01) ==
LOC: EDH 19:22 → EDHIP 10-13 02:05 → 3BH 10-13 02:43
PROVIDERS: ADMIT Internal Medicine Critical Care Medicine; ATTEND Internal Medicine Critical Care Medicine
DX: I16.0 Hypertensive urgency (principal); E11.65 Type 2 diabetes mellitus with hyperglycemia; K59.00 Constipation, unspecified; E78.00 Pure hypercholesterolemia, unspecified; I72.2 Aneurysm of renal artery; K44.9 Diaphragmatic hernia without obstruction or gangrene; K52.9 Noninfective gastroenteritis and colitis, unspecified; D72.829 Elevated white blood cell count, unspecified; K57.30 Diverticulosis of large intestine without perforation or abscess without bleeding; R10.9 Unspecified abdominal pain; R11.10 Vomiting, unspecified; Z95.0 Presence of cardiac pacemaker; Z95.1 Presence of aortocoronary bypass graft; Z79.899 Other long term (current) drug therapy
CPT/HCPCS: 96375 ×2; 99285; 84484; 80053; 83690; 85025 ×2; 87086; 81001; 36415 ×2; 71045; 74176; 93005; 96372; 96365; 96368; 83036; 84443; 83735; 84100; 82330; 80048; 82948 ×2; 74018; 94664; J1170; G0378 ×14; J3475; J0696; J2405; J3490 ×2; J1815; Q9967

== ENCOUNTER 2024-03-05 17:50 | Emergency (ER) | payer OTHER ==
[~2024-03-05] VITALS: Ht 157.5 cm; Wt 43.5 kg
[~2024-03-05 17:50] MED LIST changes: +BISA-151 PO; +GLIP10TA16 PO; -GLIP10TA9 PO; -LISI10TA24 PO; +LISI40TA9 PO; +METO-391 PO; -METO-408 PO; -METR-172 PO; -PENI500T2 PO; +POLY17PO4 PO; -TYL3 PO
[2024-03-05 18:15] LABS: BASOPHILS # (AUTO) 0.01 K/uL (0.00-0.20); BASOPHILS % (AUTO) 0.2 % (0.0-5.0); EOSINOPHILS # (AUTO) 0.05 K/uL (0.00-0.70); EOSINOPHILS % (AUTO) 1.1 % (0.0-8.0); HEMATOCRIT 35.9 % (36-48); IMMATURE GRANULOCYTE ABSOLUTE 0.01 K/uL (0-1); LYMPHOCYTES # (AUTO) 2.5 K/uL (1.0-4.8); LYMPHOCYTES % (AUTO) 52.4 % (21.0-51.0); MEAN CORPUSCULAR HEMOGLOBIN 30.7 pg (27.0-33.0); MEAN CORPUSCULAR HGB CONC 33.1 g/dL (32.0-36.0); MEAN CORPUSCULAR VOLUME 92.5 fL (79-99); MONOCYTES # (AUTO) 0.7 K/uL (0.1-1.0); MONOCYTES % (AUTO) 13.8 % (3.0-13.0); NEUTROPHILS # (AUTO) 1.5 K/uL (1.8-7.7); NEUTROPHILS % (AUTO) 32.3 % (40.0-77.0); PLATELET COUNT (AUTO) 218 K/uL (130-400); RED BLOOD CELL COUNT(AUTO) 3.88 MIL/uL (4.00-5.50); RED CELL DISTRIBUTION WIDTH 12.2 % (11.0-15.5); WHITE BLOOD COUNT (AUTO) 4.7 K/uL (4.8-10.8)
[2024-03-05 18:21] LABS: POTASSIUM 4.4 mmol/L (3.5-5.1)
[2024-03-05 18:38] LABS: B-TYPE NATRIURETIC PEPTIDE 123 pg/mL (0-100)
--- NOTE | 2024-03-05 19:16 | ERN ---
General Chief Complaint: Chest Pain Stated Complaint: CHEST PAIN Time Seen by MD: 17:51 Time Seen by Midlevel: 17:51 Source: patient History of Present Illness Initial Comments 83-year-old female who presents to the ED due to chest pain and near-syncope Patient was upstairs in the hospital seeing her in ICU when symptoms initiated. When patient was being triaged and evaluated she stated symptoms had resolved and was feeling better. Daughter states patient had not been complaining of any chest pain or shortness of breath prior to seeing her . Patient was recently diagnosed with influenza two days ago. PMHx CABG, pacemaker, DM, hypercholesterolemia, HTN Allergies: Coded Allergies: No Known Allergies (Unverified Allergy, Unknown, 08/25/13) Home Meds Active Scripts Polyethylene Glycol 3350 (Miralax) 17 Gram Powd.pack, 17 GM PO DAILY for 30 Days, #30 Prov:BERT DAY PLATFORM SUPERVISOR 10/13/23 Bisacodyl (Bisacodyl) 5 Mg Tablet.dr, 10 MG PO BID for 5 Days, #10 TAB Prov:BERT DAY NP 10/13/23 Albuterol Sulfate (Proair Digihaler) 90 Mcg Aer.pw.bas, 2 PUFF IH QID, #1 UNIT Prov:SCOT BHATTI MD 08/10/23 Albuterol Sulfate (Albuterol Sulfate) 2.5 Mg/0.5 Ml Vial.neb, 2.5 MG IH Q6H for wheezing/sob, #20 INH 0 Refills Prov:ROCIO BILL Sr., MD 07/15/23 Reported Medications Metoprolol Succinate (Metoprolol Succinate) 50 Mg Tab.er.24h, 50 MG PO BID, TAB 10/13/23 Lisinopril (Lisinopril) 40 Mg Tablet, 40 MG PO DAILY, TAB 10/13/23 Atorvastatin Calcium (Atorvastatin Calcium) 40 Mg Tablet, 40 MG PO DAILY, TAB 11/26/17 Glipizide (Glipizide) 10 Mg Tablet, 10 MG PO BID, TAB 11/26/17 Aspirin (ASPIRIN 81 MG ECTAB) 81 Mg Ectab, 81 MG PO DAILY, TAB.EC 05/29/16 Metformin HCl (Metformin HCl ER) 500 Mg Tab.er.24, 500 MG PO BID, TAB 05/29/16 Past Medical History Past Medical History: Diabetes-Type II, High Cholesterol, Hypertension Past Surgical History: CABG, Pacer/AICD Surgical History Other: OPEN HEART SX Social History Social History: Negative Female( History) History: Not Applicable ROS Dictation Constitutional: Negative for fever,chills, and weight loss Eyes: Negative for injury, pain,redness, and discharge ENT: Negative for injury,pain or swelling Cardiovascular: Positive for chest pain Negative for palpitations, and edema Respiratory: Negative for shortness of breath, cough, and wheezing, Abdomen/GI: Negative for abdominal pain, nausea, vomiting, diarrhea, and constipation Back: Negative for injury and pain : Negative for painful urination, bleeding or discharge MS/Extremity: Negative for injury and deformity Skin: Negative for rash, and discoloration Neuro: Positive for near-syncope Negative for headache, weakness, numbness, tingling, and seizure Psych: Negative for suicide ideation, homicidal ideation, and hallucinations Physical Exam Physical Exam Dictation General: awake, alert, no acute distress Head/Face: Normocephalic, atraumatic Eyes: normal conjunctiva ENT: oral cavity clear, oral mucosa moist Neck: Normal range of motion, supple Cardiovascular: RRR, normal S1/S2, Respiratory: CTAB, no respiratory distress, no rales or wheezes Skin: Warm, dry, normal turgor, no rash MS/Extremity: Pulses equal, no cyanosis, neurovascular intact, FROM Neuro: COAx4, GCS 15, no neurological deficits, normal gait Psych: Normal behavior, mood, and affect normal Results Laboratory and Microbiology Lab and Micro Result Laboratory Tests Test 03/05/24 18:05 03/05/24 18:26 White Blood Count 4.7 K/uL (4.8-10.8) L Red Blood Count 3.88 MIL/uL (4.00-5.50) L Hemoglobin 11.9 g/dL (12.0-16.0) L Hematocrit 35.9 % (36-48) L Mean Corpuscular Volume 92.5 fL (79-99) Mean Corpuscular Hemoglobin 30.7 pg (27.0-33.0) Mean Corpuscular Hemoglobin Concent 33.1 g/dL (32.0-36.0) Red Cell Distribution Width 12.2 % (11.0-15.5) Platelet Count 218 K/uL (130-400) Mean Platelet Volume 9.2 fL (7.5-10.5) Immature Granulocyte % (Auto) 0.2 % (0-1) Neutrophils (%) (Auto) 32.3 % (40.0-77.0) L Lymphocytes (%) (Auto) 52.4 % (21.0-51.0) H Monocytes (%) (Auto) 13.8 % (3.0-13.0) H Eosinophils (%) (Auto) 1.1 % (0.0-8.0) Basophils (%) (Auto) 0.2 % (0.0-5.0) Neutrophils # (Auto) 1.5 K/uL (1.8-7.7) L Lymphocytes # (Auto) 2.5 K/uL (1.0-4.8) Monocytes # (Auto) 0.7 K/uL (0.1-1.0) Eosinophils # (Auto) 0.05 K/uL (0.00-0.70) Basophils # (Auto) 0.01 K/uL (0.00-0.20) Absolute Immature Granulocyte (auto 0.01 K/uL (0-1) Nucleated Red Blood Cells 0.0 % (0.0-0.19) Sodium Level 142 mmol/L (136-145) Potassium Level 4.4 mmol/L (3.5-5.1) Chloride Level 105 mmol/L (101-111) Carbon Dioxide Level 30 mmol/L (21-32) Blood Urea Nitrogen 23 mg/dL (7-18) H Creatinine 1.0 mg/dL (0.5-1.0) Glomerular Filtration Rate Calc 56 mL/min (>90) Random Glucose 261 mg/dL (70-105) H Total Calcium 9.0 mg/dL (8.5-10.1) Total Creatine Kinase 71 U/L (21-232) B-Type Natriuretic Peptide 123 pg/mL (0-100) H Troponin I < 0.05 ng/mL (0.00-0.05) Labs Reviewed?: Yes MDM MDM: Differential diagnosis: Atypical chest pain, panic attack, anxiety Rationale: 83-year-old female who presents to the ED due to chest pain and near- syncope. Patient was upstairs in the hospital seeing her in ICU when symptoms initiated. When patient was being triaged and evaluated she stated symptoms had resolved and was feeling better. Daughter states patient had not been complaining of any chest pain or shortness of breath prior to seeing her . Patient was recently diagnosed with influenza two days ago. PMHx CABG, pacemaker, DM, hypercholesterolemia, HTN EKG obtained indicates ventricular conduction due to pacemaker. Labs showed WBC mildly decreased at 4.7 may be due to recent influenza diagnosis. Negative troponin. On re-examination patient stated she felt better and and symptoms have completely resolved. Decision for admission for 24-48 hour observation was offered to patient who declined and stated she wanted to go home and follow up outpatient with PCP. Patient educated on findings diagnosis. Advised to follow up with PCP. Return to the ED if any worsening symptoms. There are no social concerns with this patient. I independently interpreted the test that were performed, results were reviewed by me and considered findings on radiology if ordered. Medical management and examination interpretation discussions were had by me with other qualified healthcare professionals as indicated for the patient's care. ED Course Orders Procedure Category Date Status Time Vital Signs Per CPOE 03/05/24 Transmitted Routine 17:54 B-Type Natriuretic LAB 03/05/24 Complete Peptide 17:54 Chest 1vw RAD 03/05/24 Taken 17:54 12 Lead Ekg Tracing- EKG 03/05/24 Logged Technical 17:54 Oxygen By Nc/Pulse Ox CPOE 03/05/24 Transmitted 17:54 Maintain Iv CPOE 03/05/24 Transmitted 17:54 Iv Insertion CPOE 03/05/24 Transmitted 17:54 Cardiac Monitoring CPOE 03/05/24 Transmitted 17:54 Pulse Oximetry With CPOE 03/05/24 Transmitted Vs And Prn 17:54 Cbc With Differential LAB 03/05/24 Complete 17:54 Activity: Br W/Brp CPOE 03/05/24 Transmitted With Assist 17:54 Creatine Kinase, Total LAB 03/05/24 Complete 17:54 Urinalysis Profile LAB 03/05/24 Logged 17:54 Troponin Poc Order LAB 03/05/24 Complete Only 17:54 Bedside Troponin-I LAB.ER 03/05/24 In Process (Poc) 17:54 Basic Metabolic Panel LAB 03/05/24 Complete 17:54 Vital Signs Date Time Temp Pulse Resp B/P (MAP) Pulse Ox O2 Delivery O2 Flow Rate FiO2 03/05/24 19:36 97.9 70 18 168/70 98 Room Air* 0 21 03/05/24 17:51 97.0 79 20 225/90 100 Room Air 0 DX & DISP Disposition: Discharge Departure Impression: Primary Impression: Atypical chest pain Additional Impressions: Anxiety, Panic attack Condition: Stable Additional Instructions: Discharge home. Rest. Follow up with primary care DrStephani in 24 hours. Return to the ER for any acute changes or worsening symptoms. If any medications were prescribed take as directed. Okay to continue home medications unless otherwise discussed during your visit in the emergency room today. Patient was also advised to follow-up with primary care physician in 1 to 2 days for continued monitoring. Referrals: FREDERIC CHADWICK MD (PCP) I participated in the following activities of this patient's care: For this patient encounter, I reviewed the PA or PLATFORM SUPERVISOR documentation, treatment plan, and medical decision making. I did not have [id number] time with this patient. I will sign as the reviewing DrStephani And agree with the treatment plan and disposition. KELSEY EID Mar 05, 2024 19:16
[2024-03-05 19:36] VITALS: BP 168/70; PULSE 70; RESP 18; TEMP 97.9; O2SAT 98
--- NOTE | 2024-03-06 08:41 | HMCIMG ---
CHEST 1VW REASON: CHEST PAIN COMPARISON: 10/12/2023 FINDINGS: Single view of the chest was obtained. Lungs are clear. Heart size is normal. There is no pulmonary vascular congestion. Mediastinum and bony thorax appear unremarkable. There is a bipolar pacemaker in place. There is been previous median sternotomy. IMPRESSION: 1. No acute finding, no change.
--- NOTE | 2024-03-06 08:49 | EKG ---
[facility] Test Date: 2024-03-05 Test Time: 17:48:16 Pat Name: VALENTE TORRES Department: [facility] Room: Gender: F Metrology Engineer: [id number] : 1940 Requested By: AFIA RODNEY Order Number: [id number] Reading MD: Reggie Vasquez Measurements Intervals [place] Rate: 81 P: 82 TN: 245 QRS: -81 QRSD: 141 T: 107 QT: 410 QTc: 475 Interpretive Statements Ventricular-paced rhythm Compared to ECG 10/12/2023 19:29:51 Atrial-sensed ventricular-paced complex(es) or rhythm no longer present Electronically Signed On 03-06-2024 19:33:55 HR SPECIALIST by Reggie Vasquez Please click the below link to view image of tracing.
== END 2024-03-05 20:26 | disposition home or self-care (01) ==
LOC: EDH 17:50
DX: R07.89 Other chest pain (principal); F41.9 Anxiety disorder, unspecified; F41.0 Panic disorder [episodic paroxysmal anxiety]; E11.9 Type 2 diabetes mellitus without complications; E78.00 Pure hypercholesterolemia, unspecified; I10 Essential (primary) hypertension; Z79.82 Long term (current) use of aspirin; Z79.84 Long term (current) use of oral hypoglycemic drugs; Z79.899 Other long term (current) drug therapy; Z95.1 Presence of aortocoronary bypass graft; Z95.810 Presence of automatic (implantable) cardiac defibrillator
CPT/HCPCS: 36415; 71045; 80048; 82550; 83880; 84484; 85025; 93005; 99285